=== PATIENT | male | born 2000 | race Caucasian/White ===

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

== ENCOUNTER 2018-07-12 06:51 | Emergency (ER) | payer OTHER ==
[2018-07-12] MEDS: ONDANSETRON (ODT) 4 MG TAB ODT (07:01)
[2018-07-12] MEDS ORDERED: TETRACAINE 0.5% 4 ML OPH (07:02)
[2018-07-12] MEDS ORDERED: FLUORESCEIN STRIP (07:03)
[2018-07-12] MEDS: TETRACAINE 0.5% 4 ML OPH BOTH EYES (07:08)
[2018-07-12] MEDS: FLUORESCEIN STRIP BOTH EYES (07:08)
[2018-07-12] MEDS: ONDANSETRON 4 MG INJ IV (07:30)
[2018-07-12] MEDS: HYDROCODONE/APAP (10/325) TAB PO (08:03)
[2018-07-12] MEDS ORDERED: LORAZEPAM 2 MG INJ (08:05)
[2018-07-12] MEDS ORDERED: METOCLOPRAMIDE 10 MG INJ (08:05)
[2018-07-12] MEDS: METOCLOPRAMIDE 10 MG INJ IV (08:09)
[2018-07-12] MEDS: LORAZEPAM 2 MG INJ IV (08:09)
== END 2018-07-12 08:28 | disposition home or self-care (01) ==
LOC: E/R 06:51
DX: S06.0X0A Concussion without loss of consciousness, initial encounter (principal); S05.01XA Injury of conjunctiva and corneal abrasion without foreign body, right eye, initial encounter; S05.02XA Injury of conjunctiva and corneal abrasion without foreign body, left eye, initial encounter; R11.10 Vomiting, unspecified; R40.2142 Coma scale, eyes open, spontaneous, at arrival to emergency department; R40.2252 Coma scale, best verbal response, oriented, at arrival to emergency department; R40.2362 Coma scale, best motor response, obeys commands, at arrival to emergency department; Y04.8XXA Assault by other bodily force, initial encounter
CPT/HCPCS: 70450; 96374; 96375; 99285-25